=== PATIENT | female | born 1940 | race Two or more races ===

== ENCOUNTER 2025-01-27 13:07 | Inpatient (IN) | payer MEDICARE, OTHER ==
[~2025-01-27] VITALS: Ht 154.9 cm; Wt 56.5 kg
[2025-01-27 13:24] LABS: *OCCULT BLOOD STOOL NEGATIVE (NEGATIVE)
[2025-01-27 13:47] LABS: BASOPHILS % (AUTO) 0.1 % (0.0-2.0); LYMPHOCYTES # (AUTO) 1.1 K/uL (0.8-4.8); LYMPHOCYTES % (AUTO) 7.4 % (20.5-51.5); MEAN CORPUSCULAR HEMOGLOBIN 27.6 uug (24.7-32.8); MEAN CORPUSCULAR HGB CONC 33 g/dL (32.3-35.6); MEAN CORPUSCULAR VOLUME 82.5 fL (75.5-95.3); MONOCYTES # (AUTO) 0.9 K/uL (0.1-1.30); MONOCYTES % (AUTO) 6.4 % (0.0-11.0); NEUTROPHILS # (AUTO) 12.7 K/uL (1.8-8.9); NEUTROPHILS % (AUTO) 86.1 % (38.5-71.5); PLATELET COUNT (AUTO) 304 K/uL (179-408); RED BLOOD CELL COUNT(AUTO) 5.45 MIL/uL (3.63-4.92); RED CELL DISTRIBUTION WIDTH 13.2 % (12.3-17.7); WHITE BLOOD COUNT (AUTO) 14.7 K/uL (3.8-11.8)
[2025-01-27 13:50] LABS: DIFFERENTIAL COMMENT 1
[2025-01-27 13:56] LABS: ETHANOL < 3 MG/DL (0-10)
[2025-01-27 13:58] LABS: ALANINE AMINOTRANSFERASE 29 U/L (14-59); ALBUMIN 3.9 g/dL (3.4-5.0); ALKALINE PHOSPHATASE 103 U/L (50-136); ASPARTATE AMINOTRANSFERASE 42 U/L (15-37); BILIRUBIN,DIRECT 0.2 mg/dL (0.0-0.2); BILIRUBIN,TOTAL 0.5 mg/dL (0.2-1.0); CALCIUM 10.6 mg/dL (8.5-10.1); CARBON DIOXIDE 31 mmol/L (21-32); CHLORIDE 97 mmol/L (98-107); CREATININE 1.2 mg/dL (0.6-1.3); GLUCOSE 384 mg/dL (74-106); LIPASE 62 U/L (16-77); POTASSIUM 4.7 mmol/L (3.5-5.1); SODIUM SERUM 137 mmol/L (136-145); TOTAL PROTEIN, SERUM 8.4 g/dL (6.4-8.2); UREA NITROGEN, BLOOD 25 mg/dL (7-18)
[2025-01-27 14:07] LABS: LACTIC ACID 2.6 mmol/L (0.4-2.0)
[2025-01-27 14:13] LABS: AMMONIA < 10 umol/L (11-32)
[2025-01-27] MEDS: IV NORMAL SALINE 1000 ML BAG IV ONE (14:18)
[2025-01-27 14:19] LABS: NT-PRO BNP 553 pg/mL (0-125)
[2025-01-27 14:44] LABS: *BILIRUBIN,URIN 1+ (NEGATIVE); *BLOOD, URINE 3+ (NEGATIVE); *CLARITY,URINE CLEAR (CLEAR); *COLOR,URINE YELLOW (YELLOW); *KETONES,URINE 2+ (NEGATIVE); *PROTEIN,URINE 3+ (NEGATIVE); *UROBILINOGEN,URINE 0.2 E.U./dl (NORMAL); LEUKOCYTE ESTERASE ,URINE NEGATIVE (NEGATIVE); NITRITE, URINE NEGATIVE (NEGATIVE); PH,URINE 5.5 (5.0-8.0); UGLUCOSE 3+ (NEGATIVE)
[2025-01-27] MEDS ORDERED: CEFTRIAXONE /D5W 50ML IVPB **ER PYXIS IV ONE (14:47)
[2025-01-27 14:54] LABS: *AMPHETAMINE, URINE NEGATIVE (NEGATIVE); *BARBITURATE, URINE NEGATIVE (NEGATIVE); *BENZODIAZEPINE, URINE NEGATIVE (NEGATIVE); *CANNABINOID, URINE NEGATIVE (NEGATIVE); *COCCAINE, URINE NEGATIVE (NEGATIVE); *OPIATE, URINE NEGATIVE (NEGATIVE); *PHENCYCLIDINE SCREEN,URINE NEGATIVE (NEGATIVE); FENTANYL, URINE NEGATIVE (NEGATIVE)
[2025-01-27] MEDS: CEFTRIAXONE 2 G in IV DEXTROSE 5% 100 ML IV ONE (14:57)
[2025-01-27] MEDS ORDERED: METOPROLOL SUCCINATE XL 25 MG TAB.SR.24H PO ONE (15:12)
[2025-01-27] MEDS: METOPROLOL SUCCINATE XL 25 MG TAB.SR.24H PO ONE (15:19)
[2025-01-27 15:22] LABS: BACTERIA,URINE FEW /HPF (NONE SEEN); SQUAMOUS EPITHELIAL CELL,UR FEW /HPF (NONE SEEN); WBC,URINE 0-3 /HPF (0-3)
[2025-01-27] MEDS ORDERED: OMEP40CA21 PO (15:23)
[2025-01-27] MEDS ORDERED: FERR325T24 PO (15:23)
[2025-01-27] MEDS ORDERED: CHOL200010 PO (15:23)
[2025-01-27] MEDS ORDERED: DULA1.5P SQ (15:23)
[2025-01-27] MEDS ORDERED: SERT-438 PO (15:23)
[2025-01-27] MEDS ORDERED: DOCU100T2 PO (15:23)
[2025-01-27] MEDS ORDERED: MULT-1275 PO (15:23)
[2025-01-27] MEDS ORDERED: DONE5TAB34 PO (15:23)
[2025-01-27] MEDS ORDERED: ASPI81TA31 PO (15:23)
[2025-01-27] MEDS ORDERED: LOSA1TAB42 PO (15:23)
[2025-01-27] MEDS ORDERED: MAGN400T26 PO (15:23)
[2025-01-27] MEDS ORDERED: FLUT1BLS15 INH (15:23)
[2025-01-27] MEDS ORDERED: AMLO-212 PO (15:23)
[2025-01-27] MEDS ORDERED: SIMV-46 PO (15:23)
[2025-01-27] MEDS ORDERED: METH10TA7 PO (15:23)
[2025-01-27] MEDS ORDERED: GLIM4TAB37 PO (15:23)
[2025-01-27] MEDS ORDERED: METO-356 PO (15:23)
[2025-01-27] MEDS ORDERED: MEMA10TA56 PO (15:23)
[2025-01-27] MEDS: LOSARTAN POTASSIUM 50 MG TABLET PO SCH (15:42)
[2025-01-27] MEDS ORDERED: ACETAMINOPHEN 325 MG TABLET PO PRN (15:45)
[2025-01-27] MEDS ORDERED: MAGNESIUM HYDROXIDE 30 ML LIQUID UDC PO PRN (15:45)
[2025-01-27] MEDS ORDERED: ONDANSETRON 4 MG/2 ML VIAL IV PRN (15:45)
[2025-01-27] MEDS ORDERED: DEXTROSE 50% 50 ML DISP.SYRIN IV PRN (16:00)
[2025-01-27] MEDS: BLOOD SUGAR DIAGNOSTIC 1 EACH STRIP VI SCH (16:30)
[2025-01-27] MEDS ORDERED: IOHEXOL 350 100 ML INFUS..BTL ONE (16:52)
[2025-01-27] MEDS ORDERED: SWABABLE VALVE TRANSFER SET EA MC ONE (16:53)
[2025-01-27] MEDS ORDERED: IV NORMAL SALINE 250 ML IV ONE (16:53)
[2025-01-27 18:14] LABS: HEMOGLOBIN 13.1 g/dL (10.9-14.3)
[2025-01-27] MEDS: MEMANTINE HCL 10 MG TABLET PO SCH (18:32)
[2025-01-27] MEDS: METHIMAZOLE 5 MG TABLET PO SCH (18:34)
[2025-01-27] MEDS: IV NS 1000 ML 1,000 ML IV PRN (18:49)
[2025-01-27 20:33] VITALS: BP 174/76; TEMP 98.6; O2SAT 94
[2025-01-27] MEDS: OLANZAPINE 10 MG VIAL IM STA (23:58)
[2025-01-28 00:36] VITALS: BP 172/74; TEMP 98.4; O2SAT 95
[2025-01-28] MEDS: OLANZAPINE 10 MG VIAL IM STA (03:54)
[2025-01-28 05:05] VITALS: BP 152/91; TEMP 98.2; O2SAT 96
[2025-01-28 06:51] LABS: BASOPHILS % (AUTO) 0.2 % (0.0-2.0); EOSINOPHILS % (AUTO) 0.2 % (0.0-7.0); HEMATOCRIT 39.9 % (31.2-41.9); HEMOGLOBIN 13.4 g/dL (10.9-14.3); LYMPHOCYTES # (AUTO) 1.8 K/uL (0.8-4.8); LYMPHOCYTES % (AUTO) 16.5 % (20.5-51.5); MEAN CORPUSCULAR HEMOGLOBIN 27.5 uug (24.7-32.8); MEAN CORPUSCULAR HGB CONC 34 g/dL (32.3-35.6); MEAN CORPUSCULAR VOLUME 81.7 fL (75.5-95.3); MONOCYTES # (AUTO) 0.8 K/uL (0.1-1.30); MONOCYTES % (AUTO) 7.6 % (0.0-11.0); NEUTROPHILS # (AUTO) 8.1 K/uL (1.8-8.9); NEUTROPHILS % (AUTO) 75.5 % (38.5-71.5); PLATELET COUNT (AUTO) 248 K/uL (179-408); RED BLOOD CELL COUNT(AUTO) 4.88 MIL/uL (3.63-4.92); RED CELL DISTRIBUTION WIDTH 13.1 % (12.3-17.7); WHITE BLOOD COUNT (AUTO) 10.8 K/uL (3.8-11.8)
[2025-01-28 07:10] LABS: DIFFERENTIAL COMMENT 1
[2025-01-28 07:16] LABS: ALANINE AMINOTRANSFERASE 31 U/L (14-59); ALBUMIN 2.9 g/dL (3.4-5.0); ALKALINE PHOSPHATASE 75 U/L (50-136); ASPARTATE AMINOTRANSFERASE 34 U/L (15-37); BILIRUBIN,TOTAL 0.4 mg/dL (0.2-1.0); CALCIUM 8.8 mg/dL (8.5-10.1); CARBON DIOXIDE 28 mmol/L (21-32); CHLORIDE 101 mmol/L (98-107); CREATININE 0.9 mg/dL (0.6-1.3); GLUCOSE 331 mg/dL (74-106); MAGNESIUM 1.8 mg/dL (1.8-2.4); PHOSPHOROUS 3.4 mg/dL (2.5-4.9); POTASSIUM 4.1 mmol/L (3.5-5.1); SODIUM SERUM 140 mmol/L (136-145); TOTAL PROTEIN, SERUM 6.6 g/dL (6.4-8.2); UREA NITROGEN, BLOOD 19 mg/dL (7-18)
[2025-01-28 07:38] LABS: CREATINE KINASE, TOTAL 953 U/L (26-192)
[2025-01-28] MEDS: INSULIN REGULAR, HUMAN 1000 UNIT/10 ML VIAL SQ PRN (07:42)
[2025-01-28] MEDS: DONEPEZIL 5 MG TABLET PO SCH (08:34)
[2025-01-28] MEDS: ASPIRIN 81 MG TAB.CHEW PO SCH (08:34)
[2025-01-28] MEDS: MULTIVITAMINS,THERAPEUTIC TABLET PO SCH (08:35)
[2025-01-28] MEDS: METOPROLOL SUCCINATE XL 25 MG TAB.SR.24H PO SCH (08:35)
[2025-01-28] MEDS: AMLODIPINE 5 MG TABLET PO SCH (08:35)
[2025-01-28] MEDS: SERTRALINE HCL 50 MG TABLET PO SCH (08:36)
[2025-01-28] MEDS: CHOLECALCIFEROL 1,000 UNIT TABLET PO SCH (08:36)
[2025-01-28] MEDS: PANTOPRAZOLE SODIUM 40 MG VIAL IV SCH (08:39)
[2025-01-28 11:21] VITALS: BP 158/57; TEMP 98.2; O2SAT 96
[2025-01-28] MEDS: ENALAPRILAT DIHYDRATE 1.25 MG/1 ML VIAL IV PRN (11:38)
[2025-01-28 12:55] VITALS: O2SAT 96
[2025-01-28] MEDS: CEFTRIAXONE 1 G in IV DEXTROSE 5% 50 ML IV SCH (14:33)
[2025-01-28 14:52] LABS: ACETONE, SERUM SMALL (NEGATIVE)
[2025-01-28 14:53] LABS: CHOLESTEROL 217 mg/dL (<200); HDL CHOLESTEROL 59 mg/dL (40-60); TRIGLYCERIDES 209 MG/DL (30-150)
[2025-01-28 15:19] LABS: THYROID STIMULATING HORMONE < 0.007 mIU/mL (0.358-3.740)
[2025-01-28 16:29] VITALS: BP 162/77; TEMP 98.4; O2SAT 99
[2025-01-28] MEDS: REMEDY ESSENTIAL ZINC PASTE 113 GM TP PRN (16:56)
[2025-01-28 18:38] LABS: HEMATOCRIT 39.8 % (31.2-41.9); HEMOGLOBIN 13.1 g/dL (10.9-14.3)
[2025-01-28 20:00] VITALS: BP 132/55; TEMP 98.2; O2SAT 98
[2025-01-29] VITALS (8 sets, daily range): BP systolic 112–158; BP diastolic 42–61; TEMP 97.6–98.9; O2SAT 95–100
[2025-01-29] MEDS: GLIMEPIRIDE 4 MG TABLET PO SCH (16:24)
[2025-01-30] VITALS: BP 147/53; TEMP 98; O2SAT 94
[2025-01-30 04:00] VITALS: BP 110/68; TEMP 97.8; O2SAT 96
[2025-01-30 07:21] LABS: CALCIUM 8.7 mg/dL (8.5-10.1); CARBON DIOXIDE 28 mmol/L (21-32); CHLORIDE 104 mmol/L (98-107); CREATININE 1.1 mg/dL (0.6-1.3); GLUCOSE 97 mg/dL (74-106); MAGNESIUM 1.9 mg/dL (1.8-2.4); PHOSPHOROUS 4.1 mg/dL (2.5-4.9); POTASSIUM 3.6 mmol/L (3.5-5.1); SODIUM SERUM 143 mmol/L (136-145); UREA NITROGEN, BLOOD 50 mg/dL (7-18)
[2025-01-30 07:34] LABS: BASOPHILS % (AUTO) 0.3 % (0.0-2.0); EOSINOPHILS # (AUTO) 0.1 K/uL (0.0-0.7); EOSINOPHILS % (AUTO) 1.2 % (0.0-7.0); HEMATOCRIT 34.5 % (31.2-41.9); LYMPHOCYTES # (AUTO) 1.8 K/uL (0.8-4.8); LYMPHOCYTES % (AUTO) 20.9 % (20.5-51.5); MEAN CORPUSCULAR HEMOGLOBIN 28.6 uug (24.7-32.8); MEAN CORPUSCULAR HGB CONC 35 g/dL (32.3-35.6); MEAN CORPUSCULAR VOLUME 82.1 fL (75.5-95.3); MONOCYTES # (AUTO) 0.9 K/uL (0.1-1.30); MONOCYTES % (AUTO) 9.8 % (0.0-11.0); NEUTROPHILS # (AUTO) 5.9 K/uL (1.8-8.9); NEUTROPHILS % (AUTO) 67.8 % (38.5-71.5); PLATELET COUNT (AUTO) 220 K/uL (179-408); RED CELL DISTRIBUTION WIDTH 13.3 % (12.3-17.7); WHITE BLOOD COUNT (AUTO) 8.7 K/uL (3.8-11.8)
[2025-01-30 07:46] VITALS: BP 155/56; TEMP 98.4; O2SAT 94
[2025-01-30 10:49] VITALS: BP 148/49; TEMP 98; O2SAT 98
== END 2025-01-30 13:06 | DRG 640 ==
LOC: ER 13:24 → TELE3 17:01 → MEDSURG3 01-30 08:31
PROVIDERS: ADMIT Nurse Practitioner Acute Care; ATTEND Nurse Practitioner Acute Care
DX: E87.20 Acidosis, unspecified (principal); G92.8 Other toxic encephalopathy; M62.82 Rhabdomyolysis; F03.93 Unspecified dementia, unspecified severity, with mood disturbance; E78.5 Hyperlipidemia, unspecified; E11.65 Type 2 diabetes mellitus with hyperglycemia; G31.9 Degenerative disease of nervous system, unspecified; E05.90 Thyrotoxicosis, unspecified without thyrotoxic crisis or storm; I10 Essential (primary) hypertension; E86.0 Dehydration; R80.9 Proteinuria, unspecified
CPT/HCPCS: 36415; 70450; 71045; 71275; 83605; 83690; 83735; 84100; 84443; 84484; 85018; 85025; 85730; 86850; 86900; 86901; 87040; C1758; G0378; G0480; J0696; J1815; J2358; J2470; J3490; J7040; Q9967

== ENCOUNTER 2025-01-30 10:26 | Inpatient (IN) | payer MEDICARE, OTHER ==
[~2025-01-30] VITALS: Ht 154.9 cm; Wt 56.2 kg
[~2025-01-30 10:26] MED LIST: AMLO-212 PO; ASPI81TA31 PO; CHOL200010 PO; DOCU100T2 PO; DONE5TAB34 PO; DULA1.5P SQ; FERR325T24 PO; FLUT1BLS15 INH; GLIM4TAB37 PO; LOSA1TAB42 PO; MAGN400T26 PO; MEMA10TA56 PO; METH10TA7 PO; METO-356 PO; MULT-1275 PO; OMEP40CA21 PO; SERT-438 PO; SIMV-46 PO
[2025-01-30 11:06] VITALS: BP 148/49; TEMP 98
[2025-01-30 11:29] VITALS: BP 148/49; TEMP 98
[2025-01-30] MEDS ORDERED: DEXTROSE 50% 50 ML DISP.SYRIN IV PRN (16:00)
[2025-01-30 16:30] VITALS: BP 154/58; TEMP 97.8; O2SAT 97
[2025-01-30] MEDS: BLOOD SUGAR DIAGNOSTIC 1 EACH STRIP VI SCH (16:57)
[2025-01-30] MEDS: INSULIN REGULAR, HUMAN 1000 UNIT/10 ML VIAL SQ PRN (17:25)
[2025-01-30] MEDS: GLIMEPIRIDE 4 MG TABLET PO SCH (17:25)
[2025-01-30] MEDS: METHIMAZOLE 5 MG TABLET PO SCH (17:25)
[2025-01-30] MEDS: MEMANTINE HCL 10 MG TABLET PO SCH (17:26)
[2025-01-30 20:00] VITALS: BP 142/63; TEMP 98.4; O2SAT 97
[2025-01-30] MEDS ORDERED: DOCUSATE SODIUM 100 MG/10 ML LIQUID UDC PO PRN (21:00)
[2025-01-30] MEDS ORDERED: SIMVASTATIN 20 MG TABLET PO SCH ×2 (21:00)
[2025-01-31] MEDS: MELATONIN 3 MG TABLET PO SCH (00:47)
[2025-01-31] MEDS: ZOLPIDEM 5 MG TABLET PO ONE (00:47)
[2025-01-31 06:00] VITALS: BP 112/58; TEMP 98.1; O2SAT 97
[2025-01-31 08:00] VITALS: BP 125/53; TEMP 98.6; O2SAT 96
[2025-01-31] MEDS ORDERED: DOCUSATE SODIUM 100 MG CAPSULE PO PRN (09:00)
[2025-01-31] MEDS ORDERED: MAGNESIUM OXIDE 400 MG TABLET PO SCH (09:00)
[2025-01-31] MEDS: DONEPEZIL 5 MG TABLET PO SCH (09:25)
[2025-01-31] MEDS: MULTIVITAMINS,THERAPEUTIC TABLET PO SCH (09:25)
[2025-01-31] MEDS: FERROUS SULFATE 325 MG TABEC PO SCH (09:25)
[2025-01-31] MEDS: METOPROLOL SUCCINATE XL 25 MG TAB.SR.24H PO SCH (09:26)
[2025-01-31] MEDS: SERTRALINE HCL 50 MG TABLET PO SCH (09:26)
[2025-01-31] MEDS: ASPIRIN 81 MG TAB.CHEW PO SCH (09:27)
[2025-01-31] MEDS: AMLODIPINE 5 MG TABLET PO SCH (09:27)
[2025-01-31] MEDS ORDERED: DEXTROSE 50% 50 ML DISP.SYRIN IV PRN (14:15)
[2025-01-31 16:01] VITALS: BP 134/59; TEMP 98.6; O2SAT 97
[2025-01-31] MEDS ORDERED: SWABABLE VALVE TRANSFER SET EA MC ONE (16:03)
[2025-01-31] MEDS ORDERED: IOHEXOL 350 100 ML INFUS..BTL ONE (16:03)
[2025-01-31] MEDS ORDERED: IV NORMAL SALINE 250 ML IV ONE (16:03)
[2025-01-31] MEDS: BLOOD SUGAR DIAGNOSTIC 1 EACH STRIP VI SCH (17:09)
[2025-01-31] MEDS: INSULIN REGULAR, HUMAN 300 UNITS/3 ML VIAL SQ PRN (22:31)
[2025-02-01 06:00] VITALS: BP 161/70; TEMP 97.9; O2SAT 96
[2025-02-01 07:16] VITALS: BP_SYST 131; BP_DIAS 57; BP_DIAS 63; TEMP 83; TEMP 97.7; TEMP 98.1; O2SAT 95; O2SAT 99
[2025-02-01] MEDS: INSULIN REGULAR, HUMAN 1000 UNIT/10 ML VIAL SQ PRN (08:57)
[2025-02-01 15:00] VITALS: BP 101/52; TEMP 98.1; O2SAT 99
[2025-02-01 19:23] VITALS: BP 157/59; TEMP 98.2; O2SAT 98
[2025-02-02 06:00] VITALS: BP 159/62; TEMP 97.7; O2SAT 97
[2025-02-02 07:47] LABS: BASOPHILS % (AUTO) 0.7 % (0.0-2.0); EOSINOPHILS # (AUTO) 0.1 K/uL (0.0-0.7); EOSINOPHILS % (AUTO) 2.1 % (0.0-7.0); HEMATOCRIT 36.4 % (31.2-41.9); HEMOGLOBIN 12.2 g/dL (10.9-14.3); LYMPHOCYTES # (AUTO) 2.4 K/uL (0.8-4.8); LYMPHOCYTES % (AUTO) 35.3 % (20.5-51.5); MEAN CORPUSCULAR HEMOGLOBIN 27.3 uug (24.7-32.8); MEAN CORPUSCULAR HGB CONC 34 g/dL (32.3-35.6); MEAN CORPUSCULAR VOLUME 81.4 fL (75.5-95.3); MONOCYTES # (AUTO) 0.8 K/uL (0.1-1.30); MONOCYTES % (AUTO) 11.2 % (0.0-11.0); NEUTROPHILS # (AUTO) 3.5 K/uL (1.8-8.9); NEUTROPHILS % (AUTO) 50.7 % (38.5-71.5); PLATELET COUNT (AUTO) 277 K/uL (179-408); RED BLOOD CELL COUNT(AUTO) 4.47 MIL/uL (3.63-4.92); RED CELL DISTRIBUTION WIDTH 13.1 % (12.3-17.7); WHITE BLOOD COUNT (AUTO) 6.9 K/uL (3.8-11.8)
[2025-02-02] MEDS: ENOXAPARIN SODIUM 30 MG/0.3 ML DISP.SYRIN SUBCUT SCH (07:59)
[2025-02-02 08:00] VITALS: BP 156/53; TEMP 97.6; O2SAT 97
[2025-02-02 16:00] VITALS: BP 141/48; TEMP 97.6; O2SAT 97
[2025-02-02 21:21] VITALS: BP 141/40; TEMP 97.4; O2SAT 98
[2025-02-03 06:29] VITALS: BP 177/71; TEMP 98; O2SAT 98
[2025-02-03 06:43] VITALS: BP 158/50
[2025-02-03 09:25] VITALS: BP 157/53; TEMP 97.8; O2SAT 97
[2025-02-03 15:58] VITALS: BP 106/58; TEMP 98; O2SAT 95
[2025-02-03 19:00] VITALS: BP 142/41; TEMP 98.5; O2SAT 97
[2025-02-04 06:28] VITALS: BP 159/48; TEMP 97.6; O2SAT 97
[2025-02-04 08:00] VITALS: BP 154/54; TEMP 97.7; O2SAT 98
[2025-02-04 15:24] VITALS: BP 117/51; TEMP 97.6; O2SAT 97
[2025-02-04 22:02] VITALS: BP 151/49; TEMP 98.4; O2SAT 96
[2025-02-05 06:30] VITALS: BP 153/47; TEMP 98.3; O2SAT 96
[2025-02-05 08:00] VITALS: BP 156/51; TEMP 98.4; O2SAT 98
[2025-02-05 09:53] VITALS: BP 156/51
== END 2025-02-05 14:20 | disposition home health service (06) | DRG 92 ==
PROVIDERS: ADMIT Physical Medicine & Rehabilitation; ATTEND Physical Medicine & Rehabilitation Pain Medicine
DX: G92.8 Other toxic encephalopathy (principal); E87.20 Acidosis, unspecified; M62.82 Rhabdomyolysis; N17.9 Acute kidney failure, unspecified; D72.829 Elevated white blood cell count, unspecified; E11.65 Type 2 diabetes mellitus with hyperglycemia; E78.5 Hyperlipidemia, unspecified; F03.90 Unspecified dementia, unspecified severity, without behavioral disturbance, psychotic disturbance, mood disturbance, and anxiety; I10 Essential (primary) hypertension; Z74.09 Other reduced mobility; R53.81 Other malaise; R53.1 Weakness; R41.89 Other symptoms and signs involving cognitive functions and awareness; I65.22 Occlusion and stenosis of left carotid artery; Z91.81 History of falling; G31.9 Degenerative disease of nervous system, unspecified
CPT/HCPCS: 36415; 70450; 70496; 70551; 85025; J1650; J1815; Q9967